=== PATIENT | male | born 1975 | race Caucasian/White ===

== ENCOUNTER → 2021-10-30 10:22 | Outpatient (REF) | payer OTHER, SELFPAY ==
--- NOTE | 2021-10-30 10:37 | CA_ITS ---
Transthoracic Echocardiogram Patient (Last, First, Middle): Anthony Griffiths A Gender: Male Date of : 1975 Age: 46 Procedure Date: 10/30/2021 Procedure Type: Transthoracic Echocardiogram Location: OP Height: 170.18 cm Weight: 86.18 kg BSA: 1.98 m2 Heart Rate: bpm BP: 142 / 88 mmHg Well Servicing Rig Operator: OSCAR Referring MD: Niraj Moran MD Manager Wound: Cristóbal Olmedo MD Symptoms: R01.1 CARDIAC MURMUR Study Quality: Fair ECG Rhythm: Sinus Conclusions: - 1. Normal LV systolic function with LVEF of 60-65% 2. Probably bicuspid aortic valve with moderate stenosis 3. Mild left atrial enlargement 4. Mildly dilated ascending aorta 5. Normal RVSP 6. No pericardial effusion Findings Left Ventricle Normal left ventricular size, thickness, and systolic function. The visually estimated ejection fraction is between 60-65%. Spectral Doppler is indicative of a normal filling pattern. Right Ventricle Normal right ventricular cavity size and systolic function. Atria The left atrium is mildly dilated. There is no evidence of interatrial shunt. The right atrium is normal in size. Aortic Valve The aortic valve was not well visualized. There is moderate calcification of the aortic valve. There is mild thickening of the aortic valve. There is moderate aortic valve stenosis. The peak aortic gradient is 33 mmHg.The mean gradient is 20 mmHg. There is no aortic valve regurgitation. On some views the valve appears to be bicuspid. Mitral Valve There is mild anterior and posterior mitral leaflet thickening. There is mild mitral annular calcification. There is trace mitral valve regurgitation. There is no mitral valve stenosis. Pulmonic Valve The pulmonic valve was not well visualized. Tricuspid Valve There is trace tricuspid valve regurgitation. The right ventricular systolic pressure is normal. The right ventricular systolic pressure is 15 mmHg. There is no evidence of pulmonary hypertension. Great Vessels The pulmonary artery was not well visualized. There is mild dilatation of the ascending aorta measuring 4.00 cm. Venous The inferior vena cava is normal in size and collapses greater than 50% with inspiration. Pericardium/Pleural There is no evidence of pericardial effusion. Prior Study Comparison No prior study available for comparison. Measurements 2D Linear Measurements IVSd: 1.07 0.6-0.9/0.6-1.0 cm LVIDd: 5.07 3.9-5.3/4.2-5.9 cm LVIDd Index: 2.56 2.4-3.2/2.2-3.1 cm/m2 LVIDs: 3.21 2.0-3.6 cm LVPWd: 1.13 0.7-1.1 cm Ao Root: 3.70 2.1-3.5 cm LA Diam: 3.30 2.7-3.8/3.0-4.0 cm LAIDs Index: 1.67 1.5-2.3 cm/m2 LV Mass: 264.07 67-162/88-224 g LV Mass Index: 133.37 43-95/49-115 g/m2 LVOT Diam: 2.20 3.0+(-)1.3 cm 2D Systolic Function EF 4C: 54.30 >55% EF 2C: 56.00 >55% EF BiP: 55.60 >55% Mitral Valve MV Pk E: 0.86 MV PK A: 0.72 MV Decel Time: 180.00 E/A: 1.20 E'Lateral: 10.60 E'Medial: 7.29 E/E' Med: 11.80 E/E' Lat: 8.10 PHT: 53.00 MVA PHT: 4.15 Decel [place]: 4.81 Aortic Valve AoV Pk Zachary: 2.89 AoV Mn Zachary: 2.10 AoV VTI: 0.63 AoV Pk Grad: 33.00 Aov Mn Grad: 20.00 MATTHEW Cont.VTI: 1.09 LVOT LVOT Pk Zachary: 0.88 LVOT Mn Zachary: 0.62 LVOT VTI: 0.18 LVOT Pk Grad: 3.00 LVOT Mn Grad: 2.00 LVOT Diam: 2.20 LVOT Area: 3.80 Diastolic Function MV Pk E: 0.86 MV Pk A: 0.72 E/A: 1.20 E'Medial: 7.29 E/E' Med: 11.80 E' Laterial: 10.60 E/E' Lat: 8.10 Right Ventricle TAPSE (mm): 23.30 TVS' Zachary: 10.90 Tricuspid Valve TR Pk Zachary: 1.70 TR Pk Grad: 12.00 RA Press: 3.00 RVSP: 15.00 Great Vessels Aorta Ao Root-2D: 3.70 2.0-3.7 cm Ao Asc: 4.00 2.1-3.4 cm Ao Arch: 3.30 Updated in Other Vendor System with Status of Final Cristóbal Olmedo MD electronically signed on 10/31/2021 7:44:38 AM with status of Final
== END ==
LOC: HO.CARD 10:22
PROVIDERS: PCP Internal Medicine; Visit Provider Internal Medicine
DX: R01.1 Cardiac murmur, unspecified (principal)
CPT/HCPCS: 93306

== ENCOUNTER 2021-12-10 14:56 | Outpatient (REF) | payer OTHER, SELFPAY ==
[2021-12-10 17:11] LABS: Anion Gap 12 (12-20); Blood Urea Nitrogen 16 mg/dL (9-16); Calcium 10.3 mg/dL (8.4-10.2); Carbon Dioxide 27 mmol/L (22-29); Chloride 103 mmol/L (96-108); Cholesterol 254 mg/dL; Estimated Glomerular Filt Rate > 60; Glucose Random 83 mg/dL (60-115); HDL Cholesterol 53 mg/dL; LDL Cholesterol Calculated 151 mg/dl; Potassium 4.2 mmol/L (3.3-5.1); Sodium 138 mmol/L (135-145); Triglycerides 250 mg/dL
[2021-12-16 10:51] LABS: Metanephrine, Free 71 pg/mL (<=57); Normetanephrines, Free 107 pg/mL (<=148); Total Metanephrine, Free 178 pg/mL (<=205)
[2021-12-18 15:15] LABS: Cortisol, Free 0.23 mcg/dL
[2021-12-18 17:16] LABS: Aldosterone/Renin Ratio 4.3 Ratio (0.9-28.9); Plasma Renin Activity 0.92 ng/mL/h (0.25-5.82)
== END 2021-12-10 14:57 | disposition home or self-care (01) ==
LOC: HO.LAB 14:56
PROVIDERS: PCP Internal Medicine; Referring Provider Internal Medicine; Visit Provider Internal Medicine Cardiovascular Disease
DX: I35.0 Nonrheumatic aortic (valve) stenosis (principal); I10 Essential (primary) hypertension
CPT/HCPCS: 36415; 80048; 80061; 82088; 82530; 83835; 93005

== ENCOUNTER 2022-01-07 08:52 | Outpatient (REF) | payer OTHER, SELFPAY ==
--- NOTE | ~2022-01-07 | US_ITS ---
EXAMINATION: US RETROPERITONEAL LIMITED (RENAL ONLY) US RENAL DOPPLER CLINICAL INFORMATION: Hypertension. COMPARISON: None TECHNIQUE: Malhotra-scale and color Doppler imaging of the kidneys including waveform spectral analysis of the renal arteries. FINDINGS: RIGHT KIDNEY: 11.5 x 6.5 x 6.1 cm (SAG x AP x TRV). The kidney is normal in size, contour, and echogenicity. Renal cortical thickness is normal. There is a 0.9 x 0.9 x 0.7 cm echogenic density in the lower pole questionable for a stone or cortical calcification. No hydronephrosis. LEFT KIDNEY: 11.9 x 7.9 x 6.5 cm (SAG x AP x TRV). The kidney is normal in size, contour, and echogenicity. Renal cortical thickness is normal. There is a 9 x 8 x 7 mm echogenic lesion in the midpole questionable for an angiomyolipoma. No calculi. No hydronephrosis. The visualized abdominal aorta is normal in caliber. Mid aortic peak systolic velocity is 100 cm/s. Right renal artery is patent. Right renal artery peak systolic velocities are normal measuring 125, 101 and 60 cm/s proximally, in the midportion and distally. Right renal artery to aorta ratio is normal measuring 1.3. Resistive indices of the interlobar arteries in the right kidney are normal measuring 0.5-0.6. The right renal vein is patent. The left renal artery is patent. Left renal artery peak systolic velocities measure 110, 102 and 59 cm/s proximally, in the midportion and distally. Left renal artery to aorta ratio is normal measuring 1.1. Resistive indices of the interlobar renal arteries in the left kidney are normal measuring 0.5-0.6. The left renal vein is patent . US/US renal doppler IMPRESSION: No evidence of renal artery stenosis. Question right renal cortical calcification versus stone measuring 9 mm in the lower pole of the right kidney and angiomyolipoma measuring 8 mm in the midpole of the left kidney.
== END 2022-01-07 08:53 | disposition home or self-care (01) ==
LOC: HO.US 08:52
PROVIDERS: Visit Provider Internal Medicine Cardiovascular Disease
DX: I10 Essential (primary) hypertension (principal)
CPT/HCPCS: 76775; 93975

== ENCOUNTER → 2022-01-13 10:40 | Outpatient (BNVA) | payer OTHER, SELFPAY | PROVIDERS: PCP Internal Medicine; Referring Provider Internal Medicine; Visit Provider Internal Medicine Cardiovascular Disease | DX: I10 Essential (primary) hypertension (principal); I35.0 Nonrheumatic aortic (valve) stenosis; Z79.899 Other long term (current) drug therapy | CPT/HCPCS: 99212 ==

== ENCOUNTER → 2023-01-11 12:54 | Outpatient (BNVA) | payer OTHER, SELFPAY | PROVIDERS: PCP Internal Medicine; Visit Provider Nurse Practitioner Family | DX: I10 Essential (primary) hypertension (principal); I35.0 Nonrheumatic aortic (valve) stenosis; R55 Syncope and collapse; E78.5 Hyperlipidemia, unspecified | CPT/HCPCS: 93005 ==

== ENCOUNTER → 2023-02-02 08:02 | Outpatient (REF) | payer OTHER, SELFPAY ==
--- NOTE | 2023-02-02 08:05 | HM_ITS ---
* Study performed in January 2022, but patient did not return equipment till this week. Hence reporting delay. * Underlying rhythm is sinus with an average rate of 82/Min. Range 50 to 162/Min. * Episodes of high-grade heart block; Mobitz type 2 and complete heart block; noted during sleep hours. Longest episode about 12 seconds. No episodes during the daytime. * Rare supraventricular ventricular ectopy. * Patient marker used once in association with sinus rhythm. * Findings discussed with Dr. Olmedo. [place]
--- NOTE | 2023-02-02 08:05 | CA_ITS ---
Transthoracic Echocardiogram Patient (Last, First, Middle): Anthony Griffiths A Gender: Male Date of : 1975 Age: 47 Procedure Date: 02/02/2023 Procedure Type: Transthoracic Echocardiogram Location: OP Height: 170.18 cm Weight: 90.72 kg BSA: 2.02 m2 Heart Rate: 70 bpm BP: 140 / 80 mmHg Vault Custodian: ASUNCION Chavis MD: Macy Garcia GRAPHICS INTERN-Markel Senior Dot Net Developer: Cristóbal Olmedo MD Symptoms: I35.0 - Nonrheumatic aortic (valve) stenosis Study Quality: Fair ECG Rhythm: Sinus Conclusions: - 1. Normal LV systolic function with mild LVH with LVEF of 55 60% 2. Moderate aortic stenosis with possible bicuspid aortic valve 3. Normal RV systolic pressure 4. Mildly dilated ascending aorta at 4.1 cm 5. No gross pericardial effusion Findings Left Ventricle Normal left ventricular size and systolic function. There is mildly increased left ventricular wall thickness. The visually estimated ejection fraction is between 55-60%. Spectral Doppler is indicative of a normal filling pattern. Peak GLS is -15.1%, which is reduced. Right Ventricle Normal right ventricular cavity size and systolic function. Atria Both atria are normal in size. There is no evidence of interatrial shunt. Aortic Valve The aortic valve was not well visualized. There is moderate calcification of the aortic valve. There is moderate aortic valve stenosis. The mean gradient is 20 mmHg. The aortic valve area is 1.20 cm2. There is no aortic valve regurgitation. possible bicuspid aortic valve. Mitral Valve Normal mitral valve structure and function. There is trace mitral valve regurgitation. There is no mitral valve stenosis. Pulmonic Valve The pulmonic valve is likely normal. Tricuspid Valve Normal tricuspid valve structure. There is trace tricuspid valve regurgitation. The right ventricular systolic pressure is normal. The right ventricular systolic pressure is 17 mmHg. Normal right atrial pressure. There is no evidence of pulmonary hypertension. Great Vessels The pulmonary artery was not well visualized. There is mild dilatation of the ascending aorta measuring 4.10 cm. Venous The inferior vena cava is normal in size and collapses greater than 50% with inspiration. Pericardium/Pleural There is no evidence of pericardial effusion. Prior Study Comparison No significant change compared to prior study dated: 10/30/2021. Measurements 2D Linear Measurements IVSd: 1.31 0.6-0.9/0.6-1.0 cm LVIDd: 5.00 3.9-5.3/4.2-5.9 cm LVIDd Index: 2.48 2.4-3.2/2.2-3.1 cm/m2 LVIDs: 3.41 2.0-3.6 cm LVPWd: 1.27 0.7-1.1 cm LA Diam: 3.30 2.7-3.8/3.0-4.0 cm LAIDs Index: 1.63 1.5-2.3 cm/m2 LV Mass: 322.94 67-162/88-224 g LV Mass Index: 159.87 43-95/49-115 g/m2 LVOT Diam: 2.30 3.0+(-)1.3 cm 2D Systolic Function EF 4C: 58.10 >55% EF 2C: 51.80 >55% EF BiP: 55.30 >55% Mitral Valve MV Pk E: 0.88 MV PK A: 0.72 MV Decel Time: 174.00 E/A: 1.20 E'Lateral: 9.00 E'Medial: 6.81 E/E' Med: 13.00 E/E' Lat: 9.80 PHT: 51.00 MVA PHT: 4.31 Decel [place]: 5.07 Aortic Valve AoV Pk Zachary: 2.88 AoV Mn Zachary: 2.11 AoV VTI: 0.65 AoV Pk Grad: 37.00 Aov Mn Grad: 19.80 MATTHEW Cont.VTI: 1.20 LVOT LVOT Pk Zachary: 0.89 LVOT Mn Zachary: 0.67 LVOT VTI: 0.20 LVOT Pk Grad: 3.00 LVOT Mn Grad: 2.00 LVOT Diam: 2.30 LVOT Area: 4.15 Diastolic Function MV Pk E: 0.88 MV Pk A: 0.72 E/A: 1.20 E'Medial: 6.81 E/E' Med: 13.00 E' Laterial: 9.00 E/E' Lat: 9.80 Right Ventricle TAPSE (mm): 22.30 Tricuspid Valve TR Pk Zachary: 1.49 TR Pk Grad: 9.00 RA Press: 8.00 RVSP: 17.00 Great Vessels Aorta Sinus of Valsalva: 4.00 2.0-3.5 cm Ao Asc: 4.10 2.1-3.4 cm Ao Arch: 3.20 Pulmonary Valve PV Pk Zachary: 0.87 Peak PV Grad: 3.00 Updated in Other Vendor System with Status of Final Cristóbal Olmedo MD electronically signed on 02/03/2023 12:54:27 PM with status of Final
== END ==
LOC: HO.CARD 08:02
PROVIDERS: PCP Internal Medicine; Visit Provider Nurse Practitioner Family
DX: I35.0 Nonrheumatic aortic (valve) stenosis (principal); I10 Essential (primary) hypertension; R55 Syncope and collapse
CPT/HCPCS: 93242; 93306; 93356

== ENCOUNTER → 2023-02-02 08:05 | Outpatient (BNV) | payer OTHER, SELFPAY | PROVIDERS: PCP Internal Medicine; Visit Provider Internal Medicine Cardiovascular Disease | DX: I44.2 Atrioventricular block, complete (principal) | CPT/HCPCS: 93244; 93306 ==

== ENCOUNTER → 2023-08-24 10:51 | Outpatient (REF) | payer OTHER, SELFPAY | LOC: HO.SL 10:51 | PROVIDERS: PCP Internal Medicine; Visit Provider Nurse Practitioner Family | DX: G47.33 Obstructive sleep apnea (adult) (pediatric) (principal); G47.10 Hypersomnia, unspecified | CPT/HCPCS: 95806 ==

== ENCOUNTER → 2023-08-24 11:01 | Outpatient (BNV) | payer OTHER, SELFPAY | PROVIDERS: PCP Internal Medicine; Visit Provider Internal Medicine | DX: G47.33 Obstructive sleep apnea (adult) (pediatric) (principal) | CPT/HCPCS: 95806 ==

== ENCOUNTER 2023-10-06 15:43 | Outpatient (REF) | payer OTHER, SELFPAY | END 2023-10-06 15:44 | disposition home or self-care (01) | LOC: HO.LNP 15:43 | PROVIDERS: Visit Provider Internal Medicine | DX: Z11.52 Encounter for screening for COVID-19 (principal); R51.9 Headache, unspecified; R05.9 Cough, unspecified; R50.9 Fever, unspecified | CPT/HCPCS: 0241U ==

== ENCOUNTER 2023-10-19 13:49 | Outpatient (AMB) | payer OTHER, SELFPAY ==
--- NOTE | 2023-10-19 13:57 | MHC.OFFVIS ---
Intake Vital Signs 10/19/23 13:58 Height 5 ft 7 in Weight 205 lb 0.478 oz BMI 32.1 BP 122/82 Blood Pressure Location Lt brachial Position Sitting Pulse 90 Pulse Source Doppler Pulse Oximetry (%) 98 Oxygen Delivery Method Room Air Intake Visit Reasons: nancy Allergies No Known Allergies Allergy (Mild, Verified 10/19/23 14:00) NOT APPLICABLE HPI nancy HPI Details 48-year-old gentleman, active 50+ pack-year smoker with recent diagnosis of moderate obstructive sleep apnea referred for management of his sleep apnea symptoms. Patient does complain of significant daytime sleepiness, snoring, and fatigue. He is interested in CPAP therapy. [facility] Medical History Aortic stenosis Uncontrolled hypertension Family History (Updated 01/11/23 @ 13:14 by Kamila Hyde) Mother CHF (congestive heart failure) Afib COPD (chronic obstructive pulmonary disease) Brother Heart attack Social History (Reviewed 10/19/23 @ 14:02 by Jaz Calderón [facility]) Alcohol intake: former Patient Tobacco Use Status: Current everyday Tobacco user Review of Systems Const Reports daytime sleepiness, Denies excessive sweating, Reports fatigue, Denies fever(s), Denies lethargy, Denies malaise, Denies night sweats, Reports snoring and Denies weight loss Eyes Denies blurry vision and Denies itchy eyes ENT Denies nasal congestion, Denies post nasal drip, Denies sinus pain, Denies sinus pressure and Denies other ( Thrush) Card Denies chest pain, Denies pedal edema, Denies dyspnea, Denies orthopnea and Denies paroxysmal nocturnal dyspnea Resp Denies cough, Denies hemoptysis, Denies excessive phlegm production, Denies dyspnea, Reports snoring and Denies wheezing GI Denies abdominal pain and Denies heartburn Musc Denies myalgias, Denies arthralgias and Denies joint swelling Skin/Breast Denies rash Neuro Denies memory loss and Denies seizure-like activity Psych Denies abnormal sleep pattern, Denies anxiety and Denies memory loss Endo Denies excessive sweating, Reports fatigue and Denies heat intolerance [place]onte/Lymph Denies easy bruising Aller/Immun Denies itchy eyes, Denies seasonal rhinorrhea and Denies wheezing Physical Exam Vital Signs: Last Vital Signs Pulse 90 10/19/23 13:58 BP 122/82 10/19/23 13:58 Pulse Ox 98 10/19/23 13:58 Oxygen Delivery Method Room Air 10/19/23 13:58 BMI result Body Mass Index 32.1 Const General: no acute distress and alert Nutritional Appearance: not obese Orientation/consciousness: Other orientation findings ( oriented) HEENT Head: Yes atraumatic Eyes General: appearance normal, both eyes and all related structures Sclerae: sclerae normal EOM: EOMs intact bilaterally Neck Neck: Yes supple Lymphatic: no lymphadenopathy noted Resp Effort & Inspection: normal respiratory effort and no use of accessory muscles Auscultation: clear to auscultation bilaterally Cardio Rate: regular rate Rhythm: regular rhythm Heart sounds: no gallops, no murmurs and no rubs Skin General skin exam: other ( warm) Extrem General: No clubbing, No cyanosis and No edema Assessment & Plan Assessment & Plan (1) Obstructive sleep apnea hypopnea, moderate: Code(s): G47.33 - Obstructive sleep apnea (adult) (pediatric) Plan: Results of home sleep study reviewed, underlying moderate obstructive sleep apnea with respiratory event index of 20. Patient interested CPAP therapy. Will start on APAP of 6-16 cm of water. Coding Level of Care Code New Pt Level 3 (74003) Diagnoses Obstructive sleep apnea hypopnea, moderate G47.33
[2023-10-19 13:58] VITALS: BP 122/82; PULSE 90; O2SAT 98; BMI 32.1
== END 2023-10-19 14:29 | disposition home or self-care (01) ==
PROVIDERS: PCP Internal Medicine; Visit Provider Internal Medicine Pulmonary Disease
DX: G47.33 Obstructive sleep apnea (adult) (pediatric) (principal)
CPT/HCPCS: 99203

== ENCOUNTER → 2023-10-19 13:49 | Outpatient (BNVA) | payer OTHER, SELFPAY | PROVIDERS: PCP Internal Medicine; Visit Provider Internal Medicine Pulmonary Disease ==

== ENCOUNTER 2024-03-09 09:40 | Outpatient (REF) | payer OTHER, SELFPAY ==
[2024-03-09 10:53] LABS: MANUAL DIFF FLAG NO
[2024-03-09 10:59] LABS: Appearance Urine Clear; Color Urine Yellow; Glucose Urine UA Negative (Negative); Leukocyte Esterase Urine Negative (Negative); Nitrite Urine Negative (Negative); Urine Blood Negative (Negative); Urine Ketones Negative (Negative); Urine Protein Negative (Neg-Trace)
[2024-03-09 11:05] LABS: Basophils Absolute Auto 0.1 X10*3/uL (0.0-0.2); Basophils Percent Auto 0.8 % (0-2); Eosinophils Absolute Auto 0.1 X10*3/uL (0.0-0.4); Eosinophils Percent Auto 1.2 % (0-4); Hematocrit 45.9 % (42.0-52.0); Hemoglobin 15.8 g/dl (14.0-18.0); Imm Gran Abs Auto 0.03 X10*3/uL (0.00-0.03); Imm Gran Pct Auto 0.3 % (0.0-0.4); Lymphocytes Absolute Auto 3.1 X10*3/uL (1.2-4.9); Lymphocytes Percent Auto 32.9 % (20-40); Mean Corpuscular HGB Conc 34.4 g/dl (31.0-36.0); Mean Corpuscular Hemoglobin 32.4 pg (27.0-33.0); Mean Corpuscular Volume 94.3 fL (80.0-98.0); Mean Platelet Volume 9.2 fL (9.4-12.4); Monocytes Absolute Auto 0.7 X10*3/uL (0.1-1.2); Monocytes Percent Auto 7.9 % (2-11); Neutrophils Absolute Auto 5.3 x10*3/uL (2.0-8.3); Neutrophils Percent Auto 56.9 % (45-73); Platelet Count 341 X10*3/uL (160-400); Red Blood Count 4.87 X10*6/uL (4.60-5.80); Red Cell Distribution Width 12.4 % (11.0-16.0); White Blood Count 9.3 X10*3/uL (4.8-10.8)
[2024-03-09 11:37] LABS: Alanine Aminotransferase 31 U/L (0-40); Albumin Level 4.6 g/dL (3.5-5.0); Alkaline Phosphatase 51 U/L (39-117); Anion Gap 11 (12-20); Aspartate Amino Transferase 23 U/L (5-37); Bilirubin Total 0.4 mg/dL (0.0-1.0); Blood Urea Nitrogen 12 mg/dL (9-16); C Reactive Protein 0.17 mg/dL (< or = 0.50); Calcium 9.7 mg/dL (8.4-10.2); Carbon Dioxide 28 mmol/L (22-29); Chloride 105 mmol/L (96-108); Cholesterol 206 mg/dL (<200); Estimated Glomerular Filt Rate > 60; Glucose Fasting 86 mg/dL (60-99); HDL Cholesterol 51 mg/dL (>40); LDL Cholesterol Calculated 90 mg/dL (<100); Lipase 21 U/L (8-78); Potassium 3.8 mmol/L (3.3-5.1); Sodium 140 mmol/L (135-145); Total Protein 7.3 g/dL (6.5-8.0); Triglycerides 327 mg/dL (<150)
== END 2024-03-09 09:41 | disposition home or self-care (01) ==
LOC: HO.10HDL 09:40
PROVIDERS: Visit Provider Internal Medicine
DX: I10 Essential (primary) hypertension (principal); E78.00 Pure hypercholesterolemia, unspecified; R19.8 Other specified symptoms and signs involving the digestive system and abdomen
CPT/HCPCS: 36415; 80053; 80061; 81003; 82550; 83690; 85025; 86140

== ENCOUNTER 2025-07-05 10:48 | Outpatient (REF) | payer OTHER, SELFPAY ==
[2025-07-05 11:39] LABS: MANUAL DIFF FLAG NO
[2025-07-05 11:56] LABS: Hematocrit 46.5 % (42.0-52.0); Hemoglobin 16.1 g/dl (14.0-18.0); Imm Gran Abs Auto 0.04 X10*3/uL (0.00-0.03); Imm Gran Pct Auto 0.4 % (0.0-0.4); Lymphocytes Absolute Auto 3.1 X10*3/uL (1.2-4.9); Mean Corpuscular HGB Conc 34.6 g/dl (31.0-36.0); Mean Corpuscular Hemoglobin 32.9 pg (27.0-33.0); Mean Corpuscular Volume 95.1 fL (80.0-98.0); NRBC Abs Auto 0.000 X10*3/uL (0.0-0.012); NRBC Pct Auto 0.0 /100WBC (0.0-0.2); Platelet Count 342 X10*3/uL (160-400); Red Blood Count 4.89 X10*6/uL (4.60-5.80); White Blood Count 9.3 X10*3/uL (4.8-10.8)
[2025-07-05 12:31] LABS: Alanine Aminotransferase 31 U/L (0-40); Albumin Level 4.8 g/dL (3.5-5.0); Alkaline Phosphatase 57 U/L (39-117); Anion Gap 10 (12-20); Aspartate Amino Transferase 26 U/L (5-37); Blood Urea Nitrogen 12 mg/dL (9-16); Calcium 9.3 mg/dL (8.4-10.2); Carbon Dioxide 27 mmol/L (22-29); Chloride 103 mmol/L (96-108); Cholesterol 303 mg/dL (<200); Estimated Glomerular Filt Rate > 60; HDL Cholesterol 52 mg/dL (>40); Potassium 4.4 mmol/L (3.3-5.1); Sodium 136 mmol/L (135-145); Total Protein 7.5 g/dL (6.5-8.0); Triglycerides 414 mg/dL (<150)
[2025-07-05 12:49] LABS: Syphilis Screen Nonreactive (Nonreactive)
[2025-07-05 12:50] LABS: HBS Num1 0.00 mIU/mL (0-7.99); HBc Num1 0.07 S/CO (0.00-0.79); HBsAGNum1 0.27 S/CO (0.00-0.99); HIV Num 1 0.05 S/CO (0.00-0.99); Hepatitis A Antibody IgM 0.16 Index (0-0.79); Hepatitis B Surface Antigen Negative (Negative); ~HepC Num1 0.04 S/CO (0.00-0.79); ~Hepatitis A Antibody IgM Nonreactive (Nonreactive); ~Hepatitis B Surface Antibody NONREACTIVE (Nonreactive); ~Hepatitis C Antibody Nonreactive (Nonreactive)
== END 2025-07-05 10:49 | disposition home or self-care (01) ==
LOC: HO.LAB 10:48
PROVIDERS: PCP Student in an Organized Health Care Education/Training Program; Visit Provider Student in an Organized Health Care Education/Training Program
DX: Z76.89 Persons encountering health services in other specified circumstances (principal); I10 Essential (primary) hypertension; E78.49 Other hyperlipidemia; I35.0 Nonrheumatic aortic (valve) stenosis; G47.33 Obstructive sleep apnea (adult) (pediatric); I44.2 Atrioventricular block, complete; I71.40 Abdominal aortic aneurysm, without rupture, unspecified; Z79.82 Long term (current) use of aspirin; Z79.899 Other long term (current) drug therapy
CPT/HCPCS: 36415; 80053; 80061; 82306; 83036; 84443; 85025; 86704; 86706; 86709; 86780; 86803; 87340; 87389; 96127

== ENCOUNTER 2025-07-05 10:48 | Outpatient (AMB) | payer OTHER, SELFPAY ==
--- NOTE | 2025-07-05 10:49 | MHC.PC.OV ---
Vital Signs 07/05/25 10:59 Height 5 ft 7 in Weight 199 lb BMI 31.2 BP 160/100 H Blood Pressure Location Lt brachial Position Sitting Respiration 16 Pulse 84 Pulse Source Pulse Oximeter Temp 97.7 F Temp Source Temporal Artery Scan Pulse Oximetry (%) 97 Oxygen Delivery Method Room Air Intake Visit Reasons: New Patient / [facility] / Dr Moran - see comments Establishment Guide Required: No Accompanied by: Self / Same As Patient Allergies No Known Allergies Allergy (Mild, Verified 07/05/25 10:49) NOT APPLICABLE Medication List - Last Reconciled 07/05/25 by Burak Harmon MD aspirin (Adult Low Dose Aspirin) 81 mg PO DAILY atorvastatin 20 mg PO DAILY fenofibrate nanocrystallized 145 mg PO DAILY lisinopril 20 mg PO DAILY Tobacco use date assessed: 07/05/25 Dental Screening Dental Screen Date: 07/05/25 Did you have a dental visit in the last 12 months?: No Was dental information given to patient?: Yes HPI HPI Comments History of Present Illness Details The patient is a 50-year-old male presenting with concerns related to hypertension and cardiovascular health. He has a history of essential hypertension, complete heart block, aortic stenosis, obstructive sleep apnea, hyperlipidemia, and an abdominal aortic aneurysm. The patient's hypertension is currently poorly controlled, with recent measurements in the 160s. This has been an ongoing issue without at-home monitoring due to the lack of a blood pressure device. His aortic stenosis and abdominal aortic aneurysm necessitate regular monitoring and blood pressure control to prevent further complications or the need for surgical intervention. In 2022, an echocardiogram showed moderate aortic stenosis and a mildly dilated abdominal aorta (4.1 cm) but maintained a good ejection fraction. Despite these conditions, the patient reports no symptoms such as chest pain or shortness of breath. The patient was last hospitalized in November 2022, related potentially to a colon issue, though specifics are not provided. He uses multiple cardiovascular medications, including aspirin, atorvastatin, fenofibrate, and lisinopril. The patient's family history is significant for heart disease; his mother had congestive heart failure and hypertension. Lifestyle factors also contribute to his cardiovascular risk; he quit smoking in November 2022 after 20 years of cigarette use and continues to consume alcohol daily, averaging one to two drinks per day. He denies using CPAP or BiPAP for his diagnosed ANA. He reports stopping smoking both cigarettes and marijuana earlier this year but has a longstanding history of use. Medical History: - Essential Hypertension - Complete Heart Block - Aortic Stenosis - Obstructive Sleep Apnea (denies current BiPAP or CPAP use) - Hyperlipidemia - History of Abdominal Aortic Aneurysm - Previous hospitalization for possible colon issue (November 2022) - Last echocardiogram in 2022 showing moderate aortic stenosis and mildly dilated abdominal aorta Surgical History: - Untwisting of a torsed testicle (age 13-14) - Skin removal procedure on the back of the neck Medications: - Aspirin 81 mg for heart disease - Atorvastatin 20 mg for high cholesterol - Fenofibrate for high triglycerides - Lisinopril 20 mg for high blood pressure Family History: - Mother with congestive heart failure and hypertension Diagnostic Results: - Echocardiogram (2022): Moderate aortic stenosis, mildly dilated abdominal aorta (4.1 cm), good ejection fraction - Triglycerides (2021): 327 - Cholesterol (2021): 206 Social History: - Employment: 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 - Smoking history: Quit in November 2022, previously smoked cigarettes for 20 years and marijuana for 30 years - Alcohol use: Consumes one to two drinks daily - Reports occasional mild intestinal discomfort, possibly related to previous colonoscopy requirement [facility] Medical History (Updated 07/05/25 @ 11:18 by Burak Harmon MD) AAA (abdominal aortic aneurysm) Hypertension Uncontrolled hypertension Aortic stenosis Family History (Updated 01/11/23 @ 13:14 by Kamila Hyde) Mother CHF (congestive heart failure) Afib COPD (chronic obstructive pulmonary disease) Brother Heart attack Social History Housing: House Alcohol intake: former Patient Tobacco Use Status: Former Tobacco user Tobacco use type: Cigarette Years Smoked: 20 years e-Cigarette/Vaping Use: Currently Using service: No Current occupational status: employed 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 1. Little interest or pleasure in doing things: not at all 2. Feeling down, depressed, or hopeless: not at all 3. Trouble falling or staying asleep, or sleeping too much: not at all 4. Feeling tired or having little energy: not at all 5. Poor appetite or overeating: not at all 6. Feeling bad about yourself - or that you are a failure or have let yourself or your family down: not at all 7. Trouble concentrating on things, such as reading the newspaper or watching television: not at all 8. Moving or speaking so slowly that other people could have noticed. Or the opposite - being so fidgety or restless that you have been moving around a lot more than usual: not at all 9. Thoughts that you would be better off or of hurting yourself in some way: not at all Total score: 0 Depression Screening Interpretation: Negative Depression Screening Done: Yes 21461 - PHQ-9 Billing: Yes Source: Developed by Drs. Suleman Timmons, Mis Duarte, Caleb Maher and colleagues, with an educational maggie from [employer]. Thrive Questionnaire Date Thrive assessed: 07/05/25 I am a: Patient What is your living situation today?: I have a steady place to live Within the past 12 months, did the food you bought not last and you didn't have the money to get more?: Never true Within the past 12 months, did you worry whether your food would run out before you got money to buy more?: Never true Do you have trouble paying for medicines?: No Do you have trouble getting transportation to medical appointments?: No Do you have trouble paying your heating and electricity bill?: No Do you have trouble taking care of your child, family member or friend?: No Do you have trouble with day-to-day activities such as bathing, preparing meals, shopping, managing finances, etc.?: No Are you currently unemployed and looking for a job?: No Are you interested in more education?: No THRIVE Score: 0 AUDIT C Alcohol Use Questionnaire (AUDIT-C) 1. How often do you have a drink containing alcohol?: 4 or more times a week 2. How many drinks containing alcohol do you have on a typical day when you are drinking?: 1 or 2 3. How often do you have six or more drinks on one occasion?: Never Total Score: 4 Score Reviewed/Action Taken: Yes WILMA-7 AMB Questionnaire WILMA-7 Date WILMA - 7 assessed: 07/05/25 Feeling nervous, anxious, or on edge: 0 = Not at all Not being able to stop or control worryin = Not at all Worrying too much about different things: 0 = Not at all Trouble relaxin = Not at all Being so restless that it is hard to sit still: 0 = Not at all Becoming easily annoyed or irritable: 0 = Not at all Feeling afraid as if something awful might happen: 0 = Not at all Total WILMA-7 score (0-4 normal; 5-9 mild; 10-14 moderate; 15-21 severe): 0 Source: Developed by Drs. Suleman Timmons, Mis Duarte, Caleb Maher and colleagues, with an educational maggie from [employer]. WILMA-7 Assessment Billing WILMA-7 Assessment Tool: WILMA-7 Assessment 80266 Review of Systems Const Details: - Cardiovascular: Denies chest pain or shortness of breath - Respiratory: Denies CPAP or BiPAP use - Gastrointestinal: Reports occasional intestinal discomfort All systems reviewed & are unremarkable except as reviewed in HPI and above Physical exam (Primary Care) Vital Signs: Last Vital Signs Temp 97.7 F 07/05/25 10:59 Pulse 84 07/05/25 10:59 Resp 16 07/05/25 10:59 BP 160/100 H 07/05/25 10:59 Pulse Ox 97 07/05/25 10:59 Oxygen Delivery Method Room Air 07/05/25 10:59 BMI result Body Mass Index 31.2 Tobacco/Smoking Status: Tobacco use Status Tobacco use date assessed 07/05/25 07/05/25 11:01 Patient Tobacco Use Status Former Tobacco user 07/05/25 11:01 Tobacco use type Cigarette 07/05/25 11:01 e-Cigarette/Vaping Use Currently Using 07/05/25 11:01 Depression Screening Interpretation: Negative Const Other: General: +Alert and oriented, Well nourished, No acute distress. Eye: Pupils are equal, round and reactive to light, Intact accommodation, Extraocular movements are intact, Normal conjunctiva, Vision unchanged. HENT: Normocephalic, Atraumatic, Tympanic membranes are clear, Normal hearing, Oral mucosa is moist, No pharyngeal erythema, Ear canals patent. Respiratory: Lungs CTA bilaterally, No wheeze, Respirations are non-labored. Cardiovascular: Regular rate, Regular rhythm, S1 auscultated, S2 auscultated, Murmur present, Good pulses equal in all extremities, Normal peripheral perfusion, No edema. Gastrointestinal: Soft, Non-tender, Non-distended, Normal bowel sounds, No organomegaly. Musculoskeletal: Normal range of motion, Normal strength, No tenderness, No swelling, No deformity, Normal gait. Integumentary: Warm, Dry, [place], Intact. Neurologic: Alert, Oriented, Normal sensory, Normal motor function, No focal defects, Cranial Nerves II-XII are grossly intact, Normal deep tendon reflexes. Psychiatric: Cooperative, Appropriate mood & affect, Normal judgment. Coding Level of Care Code New Pt Level 4 (25376) Diagnoses Primary hypertension I10 Hypertension type: primary hypertension Other hyperlipidemia E78.49 Hyperlipidemia type: other hyperlipidemia Nonrheumatic aortic valve stenosis I35.0 Cardiac valve disease etiology: nonrheumatic Obstructive sleep apnea hypopnea, moderate G47.33 Complete heart block I44.2 Abdominal aortic aneurysm (AAA) without rupture, unspecified part I71.40 Abdominal aorta location: unspecified Presence of rupture: without rupture Additional Codes PHQ-9 - 95400 - PHQ-9 Billing: Yes ([id number]) WILMA-7 Assessment Billing - WILMA-7 Assessment Tool: WILMA-7 Assessment [id number] ([id number]) Assessment & Plan Assessment & Plan (1) Hypertension: Comment: - Discussed the need for stringent blood pressure control to minimize cardiovascular risk and manage aortic aneurysm and stenosis. - Instructed the patient to obtain a home blood pressure monitor and keep track of readings. - Advised close monitoring of blood pressure at different times of day and adjustments to the current dosages of lisinopril or additional medication may be necessary based on these metrics. Code(s): I10 - Essential (primary) hypertension Category: Medical Qualifiers: Hypertension type: primary hypertension Qualified Code(s): I10 - Essential (primary) hypertension (2) Hyperlipemia: Comment: - Previous labs demonstrated increased triglycerides and cholesterol; these will be reevaluated. - Consideration to increase atorvastatin dosage upon lab results. Code(s): E78.5 - Hyperlipidemia, unspecified Category: Medical Qualifiers: Hyperlipidemia type: other hyperlipidemia Qualified Code(s): E78.49 - Other hyperlipidemia (3) Aortic stenosis: Comment: - Reiterated the importance of monitoring the progression of stenosis symptoms. - ECHO from 2022 demonstrated moderated , however patient remains aymptomatic - Echocardiogram ordered to assess valve function further. Code(s): I35.0 - Nonrheumatic aortic (valve) stenosis Category: Medical Qualifiers: Cardiac valve disease etiology: nonrheumatic Qualified Code(s): I35.0 - Nonrheumatic aortic (valve) stenosis (4) Obstructive sleep apnea hypopnea, moderate: Comment: - Encouraged reevaluation of the need for CPAP if symptoms worsen. Code(s): G47.33 - Obstructive sleep apnea (adult) (pediatric) Category: Medical (5) Complete heart block: Comment: - Will reassess in conjunction with cardiological follow-up. - An echocardiogram has been ordered to evaluate current cardiac function. Code(s): I44.2 - Atrioventricular block, complete Category: Medical (6) AAA (abdominal aortic aneurysm): Comment: - Highlighted the necessity of maintaining controlled blood pressure. - ECHO from 2022 demonstrated a diameter of 4.1cm - Additional monitoring will be essential, echo imaging results will guide further management. Code(s): I71.40 - Abdominal aortic aneurysm, without rupture, unspecified Category: Medical Qualifiers: Abdominal aorta location: unspecified Presence of rupture: without rupture Qualified Code(s): I71.40 - Abdominal aortic aneurysm, without rupture, unspecified Plan: Healthcare maintenance: - Recommended purchasing and using a home blood pressure cuff. - Discussed dietary modifications, emphasizing reduced salt intake and processed foods. - Advised on alcohol moderation to lower cardiovascular risk further. - Encouraged the completion and rescheduling of colonoscopy for appropriate cancer screening. Patient was informed and verbally consented to the use of an ambient scribe for clinic note documentation during this visit. Plan During the visit, I emphasized the importance of managing hypertension and lipid levels to prevent complications associated with the patient's diagnosed cardiovascular conditions. We discussed the ordered echocardiogram to evaluate and monitor the aortic stenosis and abdominal aortic aneurysm. I highlighted the significance of controlling blood pressure vigilantly to avert potential surgical interventions. The patient was advised about the importance of lifestyle modifications, including dietary changes and alcohol moderation, to optimize his cardiovascular health. I instructed him on the procurement and regular use of a home blood pressure monitor to provide a more comprehensive picture of his blood pressures outside the clinical setting. We will follow up in four weeks to assess the efficacy of these interventions and make any necessary adjustments. Orders: Orders Comprehensive Met. Panel Today Z76.89 - Persons encountering health services in other specified circumstances Hepatitis A,B,C Profile Today Z76.89 - Persons encountering health services in other specified circumstances Lipid Panel Today Z76.89 - Persons encountering health services in other specified circumstances Syphilis Screen Today Z76.89 - Persons encountering health services in other specified circumstances Complete Blood Count Auto Diff Today Z76.89 - Persons encountering health services in other specified circumstances Hemoglobin A1c Today Z76.89 - Persons encountering health services in other specified circumstances HIV Ab/Ag Today Z76.89 - Persons encountering health services in other specified circumstances TSH reflex Free T4 Today Z76.89 - Persons encountering health services in other specified circumstances Vitamin D 25-OH Total Today Z76.89 - Persons encountering health services in other specified circumstances CA echo transthoracic complete Today I35.0 - Nonrheumatic aortic (valve) stenosis Referrals Open Access Screening Colonoscopy Referral Z12.11 - Encounter for screening for malignant neoplasm of colon Cardiology Referral I35.0 - Nonrheumatic aortic (valve) stenosis, I71.40 - Abdominal aortic aneurysm, without rupture, unspecified Patient Instructions: - Buy a home blood pressure monitor and check your blood pressure regularly. - Record your blood pressure before and after taking your medicine. - Reduce salt intake and avoid processed foods. - Limit alcohol to one or two drinks a day. - Follow up in four weeks, bring your blood pressure readings. - Expect a call to schedule an echocardiogram and colonoscopy. - Keep taking your prescribed medications as directed. - Seek medical help if you experience symptoms like chest pain, dizziness, or significant changes in blood pressure.
[2025-07-05 10:59] VITALS: BP 160/100; PULSE 84; RESP 16; TEMP 36.5; O2SAT 97; BMI 31.2
--- OUTSIDE RECORDS SUMMARY | 2025-07-05 11:50 | XMS_ITS | Clinical Summary ---
Author Organization [facility] Address [address] [place] [id number] Phone Care Team Providers Care Branch Operations Manager Name Role Phone Niraj Moran MD Primary Care Provider [phone] Allergies No known active allergies Medications atorvastatin (LIPITOR) 20 mg tablet Take 1 tablet (20 mg total) by mouth at bedtime. Active fenofibrate (TRICOR) 145 mg tablet Take 1 tablet (145 mg total) by mouth 1 (one) time each day. 10/17/2024 Active lisinopriL (PRINIVIL,ZESTRI L) 20 mg tablet Take 1 tablet (20 mg total) by mouth 2 (two) times a day. Active amoxicillin (AMOXIL) 500 mg capsule Take 500 mg by mouth 2 times daily. Active Active Problems Problem Noted Date Diagnosed Date Colitis 11/12/2024 Hematuria 11/12/2024 Intraabdominal fluid collection 11/10/2024 Depression 10/25/2010 H/O: substance abuse ([facility] V24, [facility] V28) 10/25/2010 Hyperlipidemia 10/25/2010 Immunizations Immunization Administration Dates Next Due Influenza trivalent, 0.5mL, preservative free (Fluarix; FluLaval; Fluzone) ages 6mo and older (Afluria) 3 years and older 07/29/2010 Tdap Tetanus diptheria acell ular pertussis (Boostrix; Adacel) 7yo and older 07/29/2010 Social History Tobacco Use Types Packs/Day Years Used Date Smoking Tobacco: Every Day Cigarettes 0.5 20.8 Started: 2004 Smokeless Tobacco: Never Tobacco Cessation:Ready to Q uit: Yes Interpersonal Safety Answer Date Record ed Physical Abuse Unrecognized value 11/10/2024 Verbal Abuse Unrecognized value 11/10/2024 Sex and Gender Information Value Date Recorded Sex Assigned at Male 11/09/2024 6:45 PM EST Legal Sex Male 2:21 PM EST Gender Identity Male 11/09/2024 6:45 PM EST Sexual Orientation Straight 11/09/2024 6: 45 PM EST Obstetrics History Last Filed Vital Signs Vital Sign Reading Time Taken Comments Blood Pressure 157/85 12/11/2024 2:11 PM EDT Pulse 77 12/11/2024 2:11 PM EDT Temperature 35.8 C (96.4 F) 11/12/2024 8:12 AM EST Respiratory Rate 16 11/12/2024 8:12 AM EST Oxygen Saturation 100% 11/12/2024 8:12 AM EST Inhaled Oxygen Concentration - - Weight 88.5 kg (195 lb) 02/06/2025 3:03 PM EDT Height 170.2 cm (5' 7 ) 02/06/2025 3:03 PM EDT Body Mass Index 30.54 02/06/2025 3:03 PM EDT Plan of Treatment Health Maintenance Due Date Last Done Comments Colorectal Cancer Screening: Colonoscopy 1977 Hepatitis B Vaccines (1 of 3 - 19+ 3-dose series) 02/04/1996 Pneumococcal Vaccine: Pediat rics (0 to 5 Years) and At-Risk Patients (6 to 49 Years) (1 of 2 - PCV) 02/04/1996 DTaP,Tdap,and Td Vaccines (2 - Td or Tdap) 07/29/2020 07/29/2010 Cholesterol Screening (Lipid Panel) 11/20/2022 10/21/2010 HIV Screening 11/20/2022 Hepatitis C Screening 11/20/2022 Social Influencers of Health Screening 11/20/2022 Depression Screening 10/03/2024 COVID-19 Vaccine ( - 2023-2 5 season) 2025 Influenza Vaccine (#1) 2025 07/29/2010 RSV Immunization Adult Patie nts (1 - 1-dose 75+ series) 02/04/2052 HIB Vaccines Aged Out No longer eligi ble based on patient's age to complete this topic HPV Vaccines Aged Out No longer eligi ble based on patient's age to complete this topic Hepatitis A Vaccines Aged Out No long er eligible based on patient's age to complete this topic IPV Vaccines Aged Out No longer eligi ble based on patient's age to complete this topic MMR Vaccines Aged Out No longer eligi ble based on patient's age to complete this topic Meningococcal ACWY Vaccine Aged Out N o longer eligible based on patient's age to complete this topic Meningococcal B Vaccine Aged Out No l onger eligible based on patient's age to complete this topic RSV Immunization Patients Un alexandra 20 months Aged Out No longer eligible b ased on patient's age to complete this topic Varicella Vaccines Aged Out No longer eligible based on patient's age to complete this topic Procedures Procedure Name Priority Date/Time Associated Diagnosis Comments LIPID PANEL Routine 10/21/2010 from Last 3 Months or Most Recently Relevant to Health Maintenance Results * (ABNORMAL) Lipid panel (10/21/2010) LDL/HDL Ratio 7(A) 0 - 4 Triglycerides 338(A) 0 - 150 mg/dL Cholesterol 277(A) 0 - 200 mg/dL HDL 40 >=40 mg/dL LDL Cholesterol 170(A) 0 - 100 mg/dL Blood Venous blood specimen / Unknown [facility] Provider LAB BLOOD ORDERABLES Gertrudis l Result from Last 3 Months or Most Recently Relevant to Health Maintenance Insurance [facility] Advance Directives * Full Code - Default (Latest Code Status on File) Date Activated Date Inactivated Comments 11/10/2024 5:26 AM 11/12/2024 4:46 PM This is order is used when code status has not been discussed with the patient, or code status is otherwise unknown/unconfirmed To update the patient's code status, place a code status order. Do not modify or discontinue any currently active code status orders. Care Teams Branch Operations Manager Relationship Specialty Start Date End Date Niraj Moran MD [address] [place] [address] Dr Kaykay MA PCP - General Internal Medicine 11/09/24
--- OUTSIDE RECORDS SUMMARY | 2025-07-05 11:50 | XMS_ITS ---
Author Name [facility] Organization Unknown Care Team Organization Name Specialty Phone Email Start Date End Da te [facility] Diane Marte Primary Care 08/10/202205/03
== END 2025-07-05 11:18 | disposition home or self-care (01) ==
PROVIDERS: PCP Student in an Organized Health Care Education/Training Program; Visit Provider Student in an Organized Health Care Education/Training Program
DX: I10 Essential (primary) hypertension (principal); E78.49 Other hyperlipidemia; I35.0 Nonrheumatic aortic (valve) stenosis; G47.33 Obstructive sleep apnea (adult) (pediatric); I44.2 Atrioventricular block, complete; I71.40 Abdominal aortic aneurysm, without rupture, unspecified

== ENCOUNTER 2025-07-31 07:39 | Outpatient (AMB) | payer OTHER, SELFPAY ==
--- OUTSIDE RECORDS SUMMARY | 2025-07-31 07:42 | XMS_ITS | Clinical Summary ---
Author Organization [facility] Address [address] [place] [phone] Phone Care Team Providers Care Mower Mechanic Name Role Phone Niraj Moran MD Primary Care Provider [phone] Allergies No known active allergies Medications atorvastatin [...] collection 11/10/2024 Depression 10/25/2010 H/O: substance abuse ([facility] V24, [facility] V28) 10/25/2010 Hyperlipidemia 10/25/2010 [...] mg/dL Blood Venous blood specimen / Unknown [facility] Provider LAB BLOOD ORDERABLES Gertrudis l Result from Last 3 Months or Most Recently Relevant to Health Maintenance Insurance [facility] Advance Directives * Full Code - Default [...] currently active code status orders. Care Teams Mower Mechanic Relationship Specialty Start Date End Date Niraj Moran MD [address] [place] [address] Dr Kaykay MA PCP - General Internal Medicine 11/09/24
[2025-07-31 07:57] VITALS: BP 142/86; PULSE 78; TEMP 36.6; O2SAT 99; BMI 31.2
--- NOTE | 2025-07-31 07:57 | MHC.PC.OV ---
Vital Signs 07/31/25 07:57 Height 5 ft 7 in Weight 199 lb 2 oz BMI 31.2 BP 142/86 H Blood Pressure Location Lt brachial Position Sitting Pulse 78 Pulse Source Pulse Oximeter Temp 97.8 F Temp Source Temporal Artery Scan Pulse Oximetry (%) 99 Oxygen Delivery Method Room Air Intake Visit Reasons: 4 week f/u - bp f/u Terminal Make Up Operator Required: No Accompanied by: Self / Same As Patient Allergies No Known Allergies Allergy (Mild, Verified 07/31/25 07:57) NOT APPLICABLE Medication List - Last Reconciled 07/31/25 by Burak Harmon MD aspirin (Adult Low Dose Aspirin) 81 mg PO DAILY atorvastatin (Lipitor) 40 mg PO BEDTIME 90 days fenofibrate nanocrystallized 145 mg PO DAILY lisinopril 20 mg PO DAILY Tobacco use date assessed: 07/31/25 Dental Screening Dental Screen Date: 07/05/25 Did you have a dental visit in the last 12 months?: No Did you have a dental problem in the last 6 months where you did not have access to dental care?: No HPI HPI Comments History of Present Illness Details The patient is a 50 year old male presenting for follow-up management of chronic conditions, including hypertension and hyperlipidemia. He reports he has been taking his prescribed medications, including lisinopril, atorvastatin, fenofibrate, and aspirin, though he missed this morning's dose. Regarding his hypertension, his blood pressure was previously 160/100, and today's reading is 142/86. He recently acquired a blood pressure cuff and measured his pressure at home, which was 140/93 in the evening after taking his morning medication. For his hyperlipidemia, recent blood work revealed a total cholesterol of 303 and triglycerides of 414, which are noted to be very high. He was previously started on atorvastatin 40 mg. The patient has a known history of aortic stenosis, for which an echocardiogram is scheduled for August 05, and a follow-up appointment with a scrap iron cutter is scheduled for December. He also reports a history of possible diverticulitis at the beginning of the year, for which he was seen at [facility]. A colonoscopy has been ordered but has not yet been scheduled. Medical History: - Hypertension - Hyperlipidemia - Aortic stenosis - History of diverticulitis, treated at [facility] at the beginning of the year. Medications: - Lisinopril 20 mg for hypertension - Atorvastatin 40 mg for hypercholesterolemia - Fenofibrate for hyperlipidemia - Aspirin Diagnostic Results: - Labs: Total cholesterol 303, Triglycerides 414. Social History: - Stress: Experiences stress from work. - Sleep: Reports going to bed earlier voluntarily. [facility], [facility] Medical History (Updated 07/31/25 @ 08:32 by Burak Harmon MD) History of diverticulosis AAA (abdominal aortic aneurysm) Hypertension Uncontrolled hypertension Aortic stenosis Family History (Updated 07/31/25 @ 08:05 by Ne Morgan MA) Mother CHF (congestive heart failure) Afib COPD (chronic obstructive pulmonary disease) Brother Heart attack Father No problems noted. 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 1. Little interest or pleasure in doing things: not at all 2. Feeling down, depressed, or hopeless: several days 3. Trouble falling or staying asleep, or sleeping too much: not at all 4. Feeling tired or having little energy: not at all 5. Poor appetite or overeating: not at all 6. Feeling bad about yourself - or that you are a failure or have let yourself or your family down: not at all 7. Trouble concentrating on things, such as reading the newspaper or watching television: not at all 8. Moving or speaking so slowly that other people could have noticed. Or the opposite - being so fidgety or restless that you have been moving around a lot more than usual: not at all 9. Thoughts that you would be better off or of hurting yourself in some way: not at all Total score: 1 Source: Developed by Drs. Suleman Timmons, Mis Duarte, Caleb Maher and colleagues, with an educational maggie from [employer]. Thrive Questionnaire Date Thrive assessed: 07/31/25 I am a: Patient Within the past 12 months, did the food you bought not last and you didn't have the money to get more?: Never true Within the past 12 months, did you worry whether your food would run out before you got money to buy more?: Never true Do you have trouble paying for medicines?: No Do you have trouble getting transportation to medical appointments?: No Do you have trouble paying your heating and electricity bill?: No Do you have trouble taking care of your child, family member or friend?: No Do you have trouble with day-to-day activities such as bathing, preparing meals, shopping, managing finances, etc.?: No Are you currently unemployed and looking for a job?: No Are you interested in more education?: No THRIVE Score: 0 AUDIT C Alcohol Use Questionnaire (AUDIT-C) 1. How often do you have a drink containing alcohol?: Monthly or less 2. How many drinks containing alcohol do you have on a typical day when you are drinking?: 1 or 2 3. How often do you have six or more drinks on one occasion?: Less than monthly Total Score: 2 WILMA-7 AMB Questionnaire WILMA-7 Date WILMA - 7 assessed: 07/31/25 Feeling nervous, anxious, or on edge: 0 = Not at all Not being able to stop or control worryin = Not at all Worrying too much about different things: 0 = Not at all Trouble relaxin = Not at all Being so restless that it is hard to sit still: 0 = Not at all Becoming easily annoyed or irritable: 0 = Not at all Feeling afraid as if something awful might happen: 0 = Not at all Total WILMA-7 score (0-4 normal; 5-9 mild; 10-14 moderate; 15-21 severe): 0 Source: Developed by Drs. Suleman Timmons, Mis Duarte, Caleb Maher and colleagues, with an educational maggie from [employer]. Review of Systems Narrative - Neurological: Denies headaches, vision changes, or lightheadedness. - Cardiovascular: Denies chest pain. - Respiratory: Denies shortness of breath. - Genitourinary: Reports normal urination. - Musculoskeletal: Denies joint pains. All systems reviewed & are unremarkable except as reviewed in HPI and above Physical exam (Primary Care) Vital Signs: Last Vital Signs Temp 97.8 F 07/31/25 07:57 Pulse 78 07/31/25 07:57 BP 142/86 H 07/31/25 07:57 Pulse Ox 99 07/31/25 07:57 Oxygen Delivery Method Room Air 07/31/25 07:57 BMI result Body Mass Index 31.2 Tobacco/Smoking Status: Tobacco use Status Tobacco use date assessed 07/31/25 07/31/25 07:58 Patient Tobacco Use Status Former Tobacco user 07/31/25 07:58 Tobacco use type Cigarette 07/31/25 07:58 e-Cigarette/Vaping Use Currently Using 07/31/25 07:58 PHQ-9: PHQ-9 Score PHQ-9: Total score 1 07/31/25 08:06 Thrive Assessment: Date of Thrive Assessment Date Thrive assessed 07/31/25 07/31/25 07:58 Narrative General: Alert and oriented, Well nourished, No acute distress. Eye: Pupils are equal, round and reactive to light, Intact accommodation, Extraocular movements are intact, Normal conjunctiva, Vision unchanged. HENT: Normocephalic, Atraumatic, Tympanic membranes are clear, Normal hearing, Oral mucosa is moist, No pharyngeal erythema, Ear canals patent. Respiratory: Lungs CTA bilaterally, No wheeze, Respirations are non-labored. Cardiovascular: Regular rate, Regular rhythm, S1 auscultated, S2 auscultated, No murmur, Good pulses equal in all extremities, Normal peripheral perfusion, No edema. Gastrointestinal: Soft, Non-tender, Non-distended, Normal bowel sounds, No organomegaly. Musculoskeletal: Normal range of motion, Normal strength, No tenderness, No swelling, No deformity, Normal gait. Integumentary: Warm, Dry, [place], Intact. Neurologic: Alert, Oriented, Normal sensory, Normal motor function, No focal defects, Cranial Nerves II-XII are grossly intact, Normal deep tendon reflexes. Psychiatric: Cooperative, Appropriate mood & affect, Normal judgment. Coding Level of Care Code Est Pt Level 4 (78140) Complex EM visit Add On G2211 Diagnoses Primary hypertension I10 Hypertension type: primary hypertension Other hyperlipidemia E78.49 Hyperlipidemia type: other hyperlipidemia Nonrheumatic aortic valve stenosis I35.0 Cardiac valve disease etiology: nonrheumatic Abdominal aortic aneurysm (AAA) without rupture, unspecified part I71.40 Abdominal aorta location: unspecified Presence of rupture: without rupture History of diverticulosis Z87.19 Assessment & Plan Assessment & Plan (1) Hypertension: Comment: - Blood pressure remains elevated at 142/86 mmHg, showing improvement from a prior reading of 160/100. - The therapeutic goal is a pressure under 130 mmHg. - The plan is to increase lisinopril from 20 mg to 30 mg. A new prescription will be sent, and the patient is instructed to dispose of the old medication. - The patient will continue to monitor his blood pressure at home. Code(s): I10 - Essential (primary) hypertension Category: Medical Qualifiers: Hypertension type: primary hypertension Qualified Code(s): I10 - Essential (primary) hypertension (2) Hyperlipemia: Comment: - Recent lab results show a total cholesterol of 303 and triglycerides of 414, which are very high. - The plan is to continue atorvastatin 40 mg, fenofibrate, and aspirin. - The importance of dietary changes was also emphasized to help lower cholesterol levels. Code(s): E78.5 - Hyperlipidemia, unspecified Category: Medical Qualifiers: Hyperlipidemia type: other hyperlipidemia Qualified Code(s): E78.49 - Other hyperlipidemia (3) Aortic stenosis: Comment: - This is a chronic condition requiring monitoring. - The patient has an echocardiogram scheduled for August 05 and a follow-up with cardiology in December. - The results will be monitored. Code(s): I35.0 - Nonrheumatic aortic (valve) stenosis Category: Medical Qualifiers: Cardiac valve disease etiology: nonrheumatic Qualified Code(s): I35.0 - Nonrheumatic aortic (valve) stenosis (4) AAA (abdominal aortic aneurysm): Comment: - Highlighted the necessity of maintaining controlled blood pressure. - ECHO from 2022 demonstrated a diameter of 4.1cm - Will have repeat ECHO in August follow up after Code(s): I71.40 - Abdominal aortic aneurysm, without rupture, unspecified Category: Medical Qualifiers: Abdominal aorta location: unspecified Presence of rupture: without rupture Qualified Code(s): I71.40 - Abdominal aortic aneurysm, without rupture, unspecified (5) History of diverticulosis: Comment: - The patient reports a history of possible diverticulitis from the beginning of the year. - A colonoscopy has been ordered for screening, but it has not been scheduled yet. - The patient was counseled on the importance of a high-fiber diet to prevent recurrence. Code(s): Z87.19 - Personal history of other diseases of the digestive system Category: Medical Plan: Health Maintenance: - An echocardiogram is scheduled for August 05 to monitor aortic stenosis. - A follow-up with Cardiology is scheduled for December. - A colonoscopy has been ordered for colon cancer screening and evaluation of diverticulitis, pending scheduling. - Discussed dietary modifications to manage hyperlipidemia. - Advised a high-fiber diet to prevent recurrence of diverticulitis. Patient was informed and verbally consented to the use of an ambient scribe for clinic note documentation during this visit. Plan I have reviewed the patient's case and we discussed his current health status. His blood pressure remains elevated at 142/86 mmHg, and I explained that our goal is to get it under 130 mmHg. To achieve this, I am increasing his lisinopril dose from 20 mg to 30 mg and have sent a new prescription. I instructed him to discard his old 20 mg tablets and not to double up on the medication. We also discussed his very high cholesterol (303) and triglyceride (414) levels. I reinforced the importance of continuing his current medications and making dietary changes to manage this. I confirmed his upcoming echocardiogram for aortic stenosis monitoring on August 05 and his cardiology follow-up in December. We also discussed his newly reported history of diverticulitis, and I emphasized the need for the pending colonoscopy and the benefits of a high-fiber diet. Medications: New lisinopril 30 mg PO DAILY 90 tabs 3RF 90 days Discontinued lisinopril Discontinued Reason: Duplicate 20 mg PO DAILY 90 tabs 3RF Patient Instructions: - A new prescription for lisinopril 30 mg has been sent to your pharmacy. Please start taking this new dose. - Throw away your old lisinopril 20 mg tablets. Do not take them. - Continue taking your other prescribed medications, including atorvastatin, fenofibrate, and aspirin. - Please check your blood pressure regularly at home. - Make sure to attend your heart ultrasound (echocardiogram) appointment on August 05 at 3:00 PM. - You have a follow-up appointment with the coronary clinical specialist (scrap iron cutter) in December. - A colonoscopy has been ordered for you. The specialist's office will call you to schedule it. - It is important to make changes to your diet to help lower your cholesterol. - Eating foods high in fiber can help prevent issues with diverticulitis.
== END 2025-07-31 08:17 | disposition home or self-care (01) ==
LOC: HO.HMCHD 07:40
PROVIDERS: PCP Student in an Organized Health Care Education/Training Program; Visit Provider Student in an Organized Health Care Education/Training Program
DX: I10 Essential (primary) hypertension (principal); E78.49 Other hyperlipidemia; I35.0 Nonrheumatic aortic (valve) stenosis; I71.40 Abdominal aortic aneurysm, without rupture, unspecified; Z87.19 Personal history of other diseases of the digestive system

== ENCOUNTER → 2025-08-27 09:01 | Outpatient (REF) | payer OTHER, SELFPAY ==
--- NOTE | 2025-08-27 09:04 | CA_ITS ---
Transthoracic Echocardiogram Patient (Last, First, Middle): Anthony Griffiths A Gender: M Date of : 1975 Age: 50 Procedure Date: 08/27/2025 Procedure Type: Transthoracic Echocardiogram Location: OP Height: 170. cm Weight: 90.72 kg BSA: 2.02 m2 Heart Rate: 66 bpm BP: 125 / 80 mmHg Community Relations Manager: ASUNCION Referring MD: Burak Harmon MD Symptoms: I35.0 - Nonrheumatic aortic (valve) stenosis Study Quality: Adequate ECG Rhythm: Sinus Conclusions: - The left ventricular systolic function is normal. The calculated ejection fraction is 58% by biplane method. - There is moderately increased left ventricular wall thickness. - Moderately calcified, probably bicuspid aortic valve. There is moderate aortic valve stenosis. - There is mild dilatation of the ascending aorta measuring 4.30 cm. Findings Left Ventricle Normal left ventricular cavity size. There is moderately increased left ventricular wall thickness. The left ventricular systolic function is normal. The calculated ejection fraction is 58% by biplane method. There is no evidence of regional wall motion abnormalities. Diastolic function is normal for age. Right Ventricle Normal right ventricular cavity size and systolic function. Atria Both atria are normal in size. Aortic Valve There is severe calcification of the aortic valve. There is moderate aortic valve stenosis. The peak aortic velocity is 3.32 m/s with a calculated peak gradient of 44 mmHg. The mean gradient is 28 mmHg. The aortic valve area is 1.27 cm2. There is trace (trivial) aortic valve regurgitation. Moderately calcified, probably bicuspid aortic valve. Mitral Valve There is moderate mitral annular calcification. There is trace mitral valve regurgitation. There is no mitral valve stenosis. Pulmonic Valve The pulmonic valve is likely normal. Tricuspid Valve There is trace tricuspid valve regurgitation. There is no evidence of pulmonary hypertension. Great Vessels The aortic arch is normal in size. There is mild dilatation of the ascending aorta measuring 4.30 cm. Venous The inferior vena cava is normal in size and collapses less than 50% with inspiration. Pericardium/Pleural There is no evidence of pericardial effusion. Prior Study Comparison Changes noted compared to prior study dated: 02/02/2023. Slight increase in ascending aortic size. Measurements 2D Linear Measurements IVSd: 1.37 0.6-0.9/0.6-1.0 cm LVIDd: 4.76 3.9-5.3/4.2-5.9 cm LVIDd Index: 2.36 2.4-3.2/2.2-3.1 cm/m2 LVIDs: 3.24 2.0-3.6 cm LVPWd: 1.36 0.7-1.1 cm LA Diam: 3.20 2.7-3.8/3.0-4.0 cm LAIDs Index: 1.58 1.5-2.3 cm/m2 LV Mass: 324.83 67-162/88-224 g LV Mass Index: 160.81 43-95/49-115 g/m2 LVOT Diam: 2.60 3.0+(-)1.3 cm 2D Systolic Function EF 4C: 60.40 >55% EF 2C: 57.30 >55% EF BiP: 57.80 >55% Mitral Valve MV Pk E: 0.78 MV PK A: 0.64 MV Decel Time: 200.00 E/A: 1.20 E'Lateral: 6.73 E'Medial: 6.24 E/E' Med: 12.40 E/E' Lat: 11.50 PHT: 59.00 MVA PHT: 3.73 Decel [place]: 3.87 Aortic Valve AoV Pk Zachary: 3.32 AoV Mn Zachary: 2.53 AoV VTI: 0.73 AoV Pk Grad: 44.00 Aov Mn Grad: 28.00 MATTHEW Cont.VTI: 1.27 AI Pk Zachary: 3.64 AI [place]: 1.73 LVOT LVOT Pk Zachary: 0.80 LVOT Mn Zachary: 0.59 LVOT VTI: 0.17 LVOT Pk Grad: 3.00 LVOT Mn Grad: 2.00 LVOT Diam: 2.60 LVOT Area: 5.31 Diastolic Function MV Pk E: 0.78 MV Pk A: 0.64 E/A: 1.20 E'Medial: 6.24 E/E' Med: 12.40 E' Laterial: 6.73 E/E' Lat: 11.50 Right Ventricle TAPSE (mm): 21.50 TVS' Zachary: 9.49 Tricuspid Valve TR Pk Zachary: 1.55 TR Pk Grad: 10.00 RA Press: 3.00 RVSP: 13.00 Great Vessels Aorta Sinus of Valsalva: 3.80 2.0-3.5 cm Ao Asc: 4.30 2.1-3.4 cm Ao Arch: 2.90 Pulmonary Veins Pulm Vein S/D 1.40 Pulmonary Valve PV Pk Zachary: 0.88 Peak PV Grad: 3.00 Updated in Other Vendor System with Status of Final Javier Jensen MD electronically signed on 08/27/2025 10:56:02 AM with status of Final
--- OUTSIDE RECORDS SUMMARY | 2025-08-27 09:39 | XMS_ITS | Clinical Summary ---
Author Organization [facility] Address [address] [place] [id number] Phone Care Team Providers Care [facility] Name Role Phone Niraj Moran MD Primary Care Provider [phone] Allergies No known active allergies Medications atorvastatin [...] collection 11/10/2024 Depression 10/25/2010 H/O: substance abuse ([facility] V24, [facility] V28) 10/25/2010 Hyperlipidemia 10/25/2010 Immunizations Immunization Administration Dates Next Due Influenza trivalent, 0.5mL, preservative free (Fluarix; FluLaval; Fluzone) ages 6mo and older (Afluria) 3 years and older 07/29/2010 Tdap Tetanus diptheria acell ular pertussis (Boostrix; Adacel) 7yo and older 07/29/2010 Social History Tobacco Use Types Packs/Day Years Used Date Smoking Tobacco: Every Day Cigarettes 0.5 20.9 Started: 2004 Smokeless Tobacco: Never Tobacco Cessation:Ready [...] Depression Screening 10/03/2024 COVID-19 Vaccine ( - 2024-2 6 season) 2025 Influenza Vaccine (#1) 2025 07/29/2010 [...] mg/dL Blood Venous blood specimen / Unknown [facility] Provider LAB BLOOD ORDERABLES Gertrudis l Result from Last 3 Months or Most Recently Relevant to Health Maintenance Insurance [facility] Advance Directives * Full Code - Default [...] currently active code status orders. Care Teams [facility] Relationship Specialty Start Date End Date Niraj Moran MD [address] [place] [address] Dr Kaykay MA PCP - General Internal Medicine 11/09/24
== END ==
LOC: HO.CARD 09:01
PROVIDERS: PCP Student in an Organized Health Care Education/Training Program; Visit Provider Student in an Organized Health Care Education/Training Program
DX: I35.0 Nonrheumatic aortic (valve) stenosis (principal)
CPT/HCPCS: 93306

== ENCOUNTER → 2025-08-27 09:04 | Outpatient (BNV) | payer OTHER, SELFPAY | PROVIDERS: PCP Student in an Organized Health Care Education/Training Program; Visit Provider Internal Medicine | DX: I35.0 Nonrheumatic aortic (valve) stenosis (principal); I77.810 Thoracic aortic ectasia | CPT/HCPCS: 93306 ==